=== PATIENT | female | born 1980 | race African-American/Black ===

== ENCOUNTER 2017-06-22 07:34 | Emergency (ER) | payer MEDICAID ==
[~2017-06-22] VITALS: Ht 170.2 cm; Wt 175.0 kg
[~2017-06-22 07:34] MED LIST: ALBU17AE26; BECL8.7A6
[2017-06-22] MEDS ORDERED: ALBUTEROL (0.083%) 2.5MG/3ML NEB HHN STA ×2 (09:38→11:58)
[2017-06-22] MEDS ORDERED: IPRATROPIUM BROMIDE (0.02%) 0.5MG/2.5ML NEB HHN STA ×2 (09:38→11:58)
[2017-06-22] MEDS ORDERED: PREDNISONE 20MG TABLET PO STA (09:38)
[2017-06-22 13:50] VITALS: BP 158/84
== END 2017-06-22 14:15 | disposition home or self-care (01) ==
LOC: ER 07:43
DX: J45.901 Unspecified asthma with (acute) exacerbation (principal); J18.9 Pneumonia, unspecified organism
CPT/HCPCS: 71045; 81025; 94640; 99284; J7512; J7611

== ENCOUNTER 2017-08-03 12:35 | Emergency (ER) | payer MEDICAID ==
[~2017-08-03] VITALS: Ht 170.2 cm; Wt 160.0 kg
[2017-08-03 14:57] LABS: BASOPHILS % 0.6 % (0.0-2.0); EOSINOPHILS % 1.1 % (0.0-5.0); HEMATOCRIT. 28.7 % (36.0-48.0); HEMOGLOBIN. 8.5 g/dL (12.0-16.0); LYMPHOCYTES % 7.2 % (20.0-50.0); MEAN CORPUSCULAR VOLUME 60.4 fL (81.0-99.0); MEAN PLATELET VOLUME 8.4 fl (7.4-10.4); MONOCYTES % 5.5 % (2.0-8.0); NEUTROPHILS % 85.6 % (40.0-76.0); PLATELET 489 x1000/uL (130-400); RED BLOOD CELL COUNT 4.74 mill/uL (4.2-5.4); RED CELL DISTRIBUTION WIDTH 19.8 % (11.6-14.6)
[2017-08-03] MEDS ORDERED: DEXAMETHASONE 10 MG/ML VIAL IV ONE (15:00)
[2017-08-03 15:07] LABS: CHLORIDE 103 mEq/L (98-107)
[2017-08-03 15:40] LABS: PLATELET ESTIMATE INCREASED
[2017-08-03] MEDS ORDERED: CEFTRIAXONE 1 G PREMIX 50 ML IV ONE (15:45)
[2017-08-03 17:35] VITALS: BP 167/95
== END 2017-08-03 18:03 | disposition home or self-care (01) ==
LOC: ER 13:37
DX: J02.0 Streptococcal pharyngitis (principal); D50.9 Iron deficiency anemia, unspecified; D72.829 Elevated white blood cell count, unspecified; J45.909 Unspecified asthma, uncomplicated; Z98.890 Other specified postprocedural states
CPT/HCPCS: 36415; 80053; 85025; 87430; 96365; 96375; 99284; J0696; J1100

== ENCOUNTER 2019-04-21 17:56 | Emergency (ER) | payer MEDICAID, MEDICARE ==
[~2019-04-21] VITALS: Ht 170.2 cm; Wt 172.0 kg
[2019-04-21] MEDS ORDERED: VISCOUS LIDOCAINE 2% 15 ML UDC PO ONE (20:00)
[2019-04-21] MEDS ORDERED: ASPIRIN 81MG TABLET PO ONE (20:00)
[2019-04-21] MEDS ORDERED: MAGNESIUM/ALUMINUM HYDROXIDE/SIMETHICONE 30ML UDC PO ONE (20:00)
[2019-04-21 20:32] LABS: CHLORIDE 105 mEq/L (98-107)
[2019-04-21 20:33] LABS: BASOPHILS % 1.1 % (0.0-2.0); HEMATOCRIT. 24.9 % (36.0-48.0); HEMOGLOBIN. 7.6 g/dL (12.0-16.0); LYMPHOCYTES % 29.1 % (20.0-50.0); MEAN CORPUSCULAR HEMOGLOBIN 17.9 pg (28.0-32.0); MEAN CORPUSCULAR VOLUME 58.6 fL (81.0-99.0); MEAN PLATELET VOLUME 8.5 fl (7.4-10.4); MONOCYTES % 7.2 % (2.0-8.0); NEUTROPHILS % 59.6 % (40.0-76.0); PLATELET 482 x1000/uL (130-400); RED BLOOD CELL COUNT 4.24 mill/uL (4.2-5.4); RED CELL DISTRIBUTION WIDTH 19.6 % (11.6-14.6)
[2019-04-21 20:58] LABS: PLATELET ESTIMATE INCREASED
[2019-04-22 00:32] VITALS: BP 114/64
== END 2019-04-22 00:35 | disposition home or self-care (01) ==
LOC: ER 17:56
DX: R07.89 Other chest pain (principal); D64.9 Anemia, unspecified; J45.909 Unspecified asthma, uncomplicated; Z79.82 Long term (current) use of aspirin
CPT/HCPCS: 36415; 71045; 80053; 83880; 84484; 85025; 93005; 99284; Z7610

== ENCOUNTER 2020-03-10 16:28 | Emergency (ER) | payer MEDICAID, MEDICARE ==
[~2020-03-10] VITALS: Ht 170.2 cm; Wt 135.0 kg
[2020-03-10 19:40] VITALS: BP 134/80
== END 2020-03-10 19:46 | disposition home or self-care (01) ==
LOC: ER 16:28
DX: M25.562 Pain in left knee (principal); J45.909 Unspecified asthma, uncomplicated; Z98.890 Other specified postprocedural states
CPT/HCPCS: 73562; 99283

== ENCOUNTER 2020-04-28 00:33 | Emergency (ER) | payer MEDICAID ==
[~2020-04-28] VITALS: Ht 170.2 cm; Wt 164.0 kg
[2020-04-28] MEDS ORDERED: KETOROLAC 60MG/2ML VIAL IM STA (00:58)
[2020-04-28] MEDS ORDERED: NITROGLYCERIN 0.4MG TABLET SL SL PRN (01:00)
[2020-04-28] MEDS ORDERED: ASPIRIN 81MG TABLET PO ONE (01:00)
[2020-04-28 01:18] LABS: CHLORIDE 105 mEq/L (98-107)
[2020-04-28 01:29] LABS: BASOPHILS % 0.7 % (0.0-2.0); HEMATOCRIT. 25.7 % (36.0-48.0); HEMOGLOBIN. 7.7 g/dL (12.0-16.0); LYMPHOCYTES % 21.2 % (20.0-50.0); MEAN CORPUSCULAR HEMOGLOBIN 16.8 pg (28.0-32.0); MEAN CORPUSCULAR VOLUME 56.2 fL (81.0-99.0); MEAN PLATELET VOLUME 8.5 fl (7.4-10.4); MONOCYTES % 8.9 % (2.0-8.0); NEUTROPHILS % 67.2 % (40.0-76.0); PLATELET 533 x1000/uL (130-400); RED BLOOD CELL COUNT 4.57 mill/uL (4.2-5.4); RED CELL DISTRIBUTION WIDTH 20.5 % (11.6-14.6)
[2020-04-28 01:32] LABS: PLATELET ESTIMATE INCREASED
[2020-04-28 02:20] VITALS: BP 137/85
== END 2020-04-28 05:56 | disposition home or self-care (01) ==
LOC: ER 00:33
DX: R07.89 Other chest pain (principal); E66.9 Obesity, unspecified; J45.909 Unspecified asthma, uncomplicated; Z98.890 Other specified postprocedural states
CPT/HCPCS: 36415; 71045; 80053; 83880; 84484; 85025; 93005; 96372; 99285; J1885; Z7610

== ENCOUNTER 2021-04-02 19:25 | Emergency (ER) | payer MEDICAID, OTHER ==
[~2021-04-02] VITALS: Ht 170.2 cm; Wt 159.0 kg
[2021-04-02 20:06] VITALS: BP 160/70
[2021-04-02] MEDS ORDERED: TETANUS, DIPHTHERIA, PERTUSSIS VAC/PF 0.5ML (>10YR OLD) IM ONE (20:30)
[2021-04-02] MEDS ORDERED: BACITRACIN ZINC OINT UDPKT TOP ONE (20:30)
[2021-04-02] MEDS ORDERED: ACETAMINOPHEN 325MG TABLET PO ONE (20:30)
[2021-04-02] MEDS ORDERED: LIDOCAINE HCL/PF 1% 10 MG/ML 5ML VIAL INFIL ONE (20:30)
[2021-04-02] MEDS ORDERED: SULF1TAB48 MT (20:36)
[2021-04-02] MEDS ORDERED: LIDOCAINE HCL 1% 20ML VIAL (Pyxis) INJ INFIL ONE (21:00)
[2021-04-02] MEDS ORDERED: LIDOCAINE HCL/PF 1% 10 MG/ML 5ML VIAL IJ NR (21:00)
== END 2021-04-02 21:35 | disposition home or self-care (01) ==
LOC: ER 19:25
DX: L05.01 Pilonidal cyst with abscess (principal); J45.909 Unspecified asthma, uncomplicated; Z98.890 Other specified postprocedural states
CPT/HCPCS: 10060; 90471; 90715; 99283; J3490

== ENCOUNTER 2021-04-28 12:59 | Emergency (ER) | payer MEDICAID ==
[~2021-04-28] VITALS: Ht 170.2 cm; Wt 171.0 kg
[~2021-04-28 12:59] MED LIST changes: +SULF1TAB48 MT
[2021-04-28 13:04] VITALS: BP 172/65
[2021-04-29] MEDS ORDERED: ALBUL MT (16:48)
[2021-04-29] MEDS ORDERED: ALBU18HF2 IH (16:48)
[2021-04-29] MEDS ORDERED: P20 PO (16:48)
== END 2021-04-28 18:45 | disposition left against medical advice (07) ==
LOC: ER 13:07
DX: Z53.21 Procedure and treatment not carried out due to patient leaving prior to being seen by health care provider (principal); J45.909 Unspecified asthma, uncomplicated
CPT/HCPCS: 93005

== ENCOUNTER 2021-04-29 13:29 | Emergency (ER) | payer MEDICAID ==
[~2021-04-29] VITALS: Ht 170.2 cm; Wt 178.0 kg
[2021-04-29] MEDS ORDERED: ACETAMINOPHEN 325MG TABLET PO ONE (16:00)
[2021-04-29] MEDS ORDERED: ALBUTEROL (0.083%) 2.5MG/3ML NEB HHN ONE (16:15)
[2021-04-29] MEDS ORDERED: PREDNISONE 20MG TABLET PO ONE (16:15)
[2021-04-29] MEDS ORDERED: P20 PO (16:48)
[2021-04-29] MEDS ORDERED: ALBUL MT (16:48)
[2021-04-29] MEDS ORDERED: ALBU18HF2 IH (16:48)
[2021-04-29 17:16] VITALS: BP 134/83
== END 2021-04-29 17:42 | disposition home or self-care (01) ==
LOC: ER 13:29
DX: J45.901 Unspecified asthma with (acute) exacerbation (principal); Z79.899 Other long term (current) drug therapy
CPT/HCPCS: 81025; 94640; 99283; J7512; Z7610

== ENCOUNTER 2021-09-02 01:33 | Inpatient (IN) | payer MEDICAID, OTHER ==
[~2021-09-02] VITALS: Ht 165.1 cm; Wt 81.8 kg
[~2021-09-02 01:33] MED LIST changes: +ALBU18HF2 IH; +ALBU6.7H9 INH; +ALBUL MT; +P20 PO; +P50 PO
[2021-09-02] MEDS ORDERED: MORPHINE SULFATE 4 MG/ML CPJ (NOT FOR IM USE) IV ONE (02:30)
[2021-09-02 03:06] LABS: EOSINOPHILS % 3.1 % (0.0-5.0); HEMATOCRIT. 24.9 % (36.0-48.0); LYMPHOCYTES % 26.5 % (20.0-50.0); MEAN CORPUSCULAR HEMOGLOBIN 14.2 pg (28.0-32.0); MEAN CORPUSCULAR VOLUME 51.9 fL (81.0-99.0); MEAN PLATELET VOLUME 8.5 fl (7.4-10.4); MONOCYTES % 5.5 % (2.0-8.0); NEUTROPHILS % 63.9 % (40.0-76.0); PLATELET 807 x1000/uL (130-400); RED BLOOD CELL COUNT 4.79 mill/uL (4.2-5.4); RED CELL DISTRIBUTION WIDTH 23.2 % (11.6-14.6)
[2021-09-02 03:10] LABS: CHLORIDE 104 mEq/L (98-107)
[2021-09-02 03:14] LABS: CLARITY URINE CLOUDY (CLEAR); COLOR URINE ORANGE (YELLOW); KETONES URINE TRACE (NEGATIVE); LEUKOCYTE ESTERASE URINE 1+ (NEGATIVE); NITRITE URINE NEGATIVE (NEGATIVE); OCCULT BLOOD URINE 3+ (NEGATIVE); PH URINE 5.5 (4.5-8.0); PROTEIN URINE 1+ (NEGATIVE); SPECIFIC GRAVITY URINE 1.033 (1.005-1.030)
[2021-09-02 03:20] LABS: B-HCG QUANTITATIVE < 1 mIU/mL (<3)
[2021-09-02 03:39] LABS: HEMOGLOBIN. 6.8 g/dL (12.0-16.0)
[2021-09-02] MEDS ORDERED: CEFTRIAXONE 1 G PREMIX 50 ML IV ONE (04:15)
[2021-09-02 06:44] LABS: PLATELET ESTIMATE MARKEDLY INCREASED
[2021-09-02] MEDS ORDERED: MAGNESIUM/ALUMINUM HYDROXIDE/SIMETHICONE 30ML UDC PO ONE (09:45)
[2021-09-02] MEDS ORDERED: ACETAMINOPHEN 325MG TABLET PO ONE (09:45)
[2021-09-02] MEDS ORDERED: ONDANSETRON HCL 4MG/2ML INJ IV PRN (12:30)
[2021-09-02] MEDS ORDERED: ACETAMINOPHEN 325MG TABLET PO PRN (12:30)
[2021-09-02] MEDS ORDERED: KETOROLAC 30MG/ML VIAL IV PRN (12:30)
[2021-09-02 14:16] LABS: HEMATOCRIT 24.6 % (36.0-48.0)
[2021-09-02 14:32] LABS: HEMOGLOBIN 6.9 g/dL (12.0-16.0)
[2021-09-02] MEDS: DOCUSATE SODIUM 250MG CAPSULE PO SCH (16:38)
[2021-09-02] MEDS: FERROUS SULFATE 325MG TABLET PO SCH (16:40)
[2021-09-02 20:00] VITALS: BP 117/68
[2021-09-02] MEDS ORDERED: ALBU18HF2 IH (20:22)
[2021-09-02] MEDS ORDERED: IPRATROPIUM/ALBUTEROL 0.5-3(2.5)MG/3ML NEB HHN PRN (20:45)
[2021-09-03] VITALS: BP 112/50
[2021-09-03] LABS: BASOPHILS % 0.6 % (0.0-2.0); EOSINOPHILS % 3.1 % (0.0-5.0); HEMATOCRIT. 22.5 % (36.0-48.0); LYMPHOCYTES % 34.9 % (20.0-50.0); MEAN CORPUSCULAR HEMOGLOBIN 14.6 pg (28.0-32.0); MEAN PLATELET VOLUME 8.3 fl (7.4-10.4); MONOCYTES % 7.4 % (2.0-8.0); PLATELET 758 x1000/uL (130-400); RED BLOOD CELL COUNT 4.33 mill/uL (4.2-5.4); RED CELL DISTRIBUTION WIDTH 22.7 % (11.6-14.6)
[2021-09-03 00:07] LABS: CHLORIDE 107 mEq/L (98-107)
[2021-09-03 00:13] LABS: HEMOGLOBIN. 6.3 g/dL (12.0-16.0)
[2021-09-03] MEDS ORDERED: *PATIENT'S OWN MEDICATION STORAGE XX SCH (06:45)
[2021-09-03 06:50] LABS: BASOPHILS % 0.2 % (0.0-2.0); EOSINOPHILS % 3.6 % (0.0-5.0); HEMATOCRIT. 22.9 % (36.0-48.0); LYMPHOCYTES % 32.1 % (20.0-50.0); MEAN CORPUSCULAR HEMOGLOBIN 14.5 pg (28.0-32.0); MEAN CORPUSCULAR VOLUME 52.2 fL (81.0-99.0); MEAN PLATELET VOLUME 8.3 fl (7.4-10.4); MONOCYTES % 7.1 % (2.0-8.0); PLATELET 768 x1000/uL (130-400); RED BLOOD CELL COUNT 4.38 mill/uL (4.2-5.4); RED CELL DISTRIBUTION WIDTH 22.4 % (11.6-14.6)
[2021-09-03 07:15] LABS: *AMPHETAMINES SCREEN URINE NEGATIVE (NEGATIVE); *BARBITURATES SCREEN URINE NEGATIVE (NEGATIVE); *BENZODIAZEPINES SCREEN URINE NEGATIVE (NEGATIVE); CANNABINOID URINE SCREEN NEGATIVE (NEGATIVE)
[2021-09-03 07:16] LABS: *COCAINE SCREEN URINE NEGATIVE (NEGATIVE); METHADONE URINE SCREEN NEGATIVE (NEGATIVE); OPIATES URINE SCREEN NEGATIVE (NEGATIVE); PHENCYCLIDINE URINE SCREEN NEGATIVE (NEGATIVE)
[2021-09-03 08:00] VITALS: BP 114/48
[2021-09-03 08:17] LABS: HEMOGLOBIN. 6.3 g/dL (12.0-16.0)
[2021-09-03] MEDS: FERROUS SULFATE 325MG TABLET PO SCH ×2 (09:31→12:22)
[2021-09-03] MEDS: DOCUSATE SODIUM 250MG CAPSULE PO SCH (09:31)
[2021-09-03 12:00] VITALS: BP 115/50
[2021-09-03] MEDS ORDERED: DOCU250C14 PO (13:26)
[2021-09-03] MEDS ORDERED: FERR-63 PO (13:26)
[2021-09-03 15:30] VITALS: BP 115/50
[2021-09-03] MEDS ORDERED: EPOETIN ALFA-EPBX 4,000 UNIT/ML VIAL SUBCUT NR (21:00)
== END 2021-09-03 16:30 | disposition home or self-care (01) | DRG 254 ==
LOC: ER 01:33 → 8WST 11:03 → ENRESERV 19:30
PROVIDERS: ADMIT Internal Medicine; ATTEND Internal Medicine
DX: K43.9 Ventral hernia without obstruction or gangrene (principal); E44.1 Mild protein-calorie malnutrition; K80.70 Calculus of gallbladder and bile duct without cholecystitis without obstruction; E87.1 Hypo-osmolality and hyponatremia; E66.01 Morbid (severe) obesity due to excess calories; D64.9 Anemia, unspecified; J45.909 Unspecified asthma, uncomplicated; Z68.30 Body mass index [BMI] 30.0-30.9, adult; Z79.899 Other long term (current) drug therapy; Z98.891 History of uterine scar from previous surgery; Z71.3 Dietary counseling and surveillance
CPT/HCPCS: 36415; 74176; 76705; 80048; 80053; 80305; 81003; 84484; 84702; 85014; 85018; 85025; 86850; 86900; 86920; 93005; 99285; G0378; J0696; J1885; J2270; J2405

== ENCOUNTER 2022-12-08 19:51 | Emergency (ER) | payer MEDICAID, OTHER ==
[~2022-12-08] VITALS: Ht 170.2 cm; Wt 163.0 kg
[~2022-12-08 19:51] MED LIST changes: -ALBU17AE26; -ALBU6.7H9 INH; -ALBUL MT; -BECL8.7A6; +DOCU250C14 PO; +FERR-63 PO; -P20 PO; -P50 PO; -SULF1TAB48 MT
[2022-12-08 20:08] VITALS: TEMP 99.3; O2SAT 100
[2022-12-08 21:15] VITALS: BP 133/94; PULSE 105; RESP 18
[2022-12-08] MEDS ORDERED: KETOROLAC 60MG/2ML VIAL IM ONE (21:15)
[2022-12-08] MEDS ORDERED: ACETAMINOPHEN 325MG TABLET PO ONE (21:15)
[2022-12-08] MEDS ORDERED: LIDOCAINE 5% PATCH TOP SCH (21:15)
[2022-12-08] MEDS ORDERED: IBUP-2028 MT (22:27)
[2022-12-08] MEDS ORDERED: TOPUD PO (22:27)
[2022-12-08] MEDS ORDERED: LIDO1ADH23 TP (22:27)
== END 2022-12-08 23:34 | disposition home or self-care (01) ==
LOC: ER 19:51
DX: M25.561 Pain in right knee (principal); M17.11 Unilateral primary osteoarthritis, right knee; J45.909 Unspecified asthma, uncomplicated; Z98.890 Other specified postprocedural states
CPT/HCPCS: 99285; 93971; 73562; 96372; J1885

== ENCOUNTER 2023-01-11 16:02 | Emergency (ER) | payer OTHER ==
[~2023-01-11] VITALS: Ht 170.2 cm; Wt 155.0 kg
[~2023-01-11 16:02] MED LIST changes: +IBUP-2028 MT; +LIDO1ADH23 TP; +TOPUD PO
[2023-01-11 16:22] VITALS: O2SAT 100
[2023-01-11] MEDS ORDERED: LOPERAMIDE HCL 2MG CAPSULE PO ONE (17:00)
[2023-01-11 17:57] LABS: BASOPHILS % 0.6 % (0.0-2.0); EOSINOPHILS % 3.1 % (0.0-5.0); HEMATOCRIT. 26.3 % (36.0-48.0); HEMOGLOBIN. 7.1 g/dL (12.0-16.0); MEAN CORPUSCULAR HEMOGLOBIN 13.7 pg (28.0-32.0); MEAN CORPUSCULAR HGB CONC 27.2 g/dL (31.0-37.0); MEAN CORPUSCULAR VOLUME 50.3 fL (81.0-99.0); MEAN PLATELET VOLUME 8.5 fl (7.4-10.4); MONOCYTES % 11.2 % (2.0-8.0); NEUTROPHILS % 60.1 % (40.0-76.0); PLATELET 706 x1000/uL (130-400); RED BLOOD CELL COUNT 5.23 mill/uL (4.2-5.4); RED CELL DISTRIBUTION WIDTH 22.1 % (11.6-14.6); WHITE BLOOD COUNT 7.1 x1000/uL (4.5-11.0)
[2023-01-11 18:02] LABS: ADD RBC MORPHOLOGY YES; DIFFERENTIAL COMMENT 1
[2023-01-11 18:04] LABS: CHLORIDE 109 mEq/L (98-107); INDEX HEMOLYSI 1 (1-3); INDEX ICTERIC 1 (1-4); INDEX LIPEMIC 1 (1-3); POTASSIUM 3.4 mEq/L (3.5-5.1); SODIUM 135 mEq/L (136-145)
[2023-01-11 18:11] LABS: ALANINE AMINOTRANSFERASE 19 IU/L (13-61); ASPARTATE AMINOTRANSFERASE 14 IU/L (15-37); BILIRUBIN TOTAL 0.3 mg/dL (0.1-1.0); CARBON DIOXIDE 21 mEq/L (21-32); CREATININE 0.7 mg/dL (0.6-1.3); GLUCOSE 95 mg/dL (70-105); PROTEIN TOTAL 8.3 g/dL (6.0-8.3); UREA NITROGEN BLOOD 7 mg/dL (7-21)
[2023-01-11 18:13] LABS: HCG SCREEN NEGATIVE
[2023-01-11 18:29] LABS: ANISOCYTOSIS 2+; HYPOCHROMASIA 3+; MICROCYTOSIS 3+; OVALOCYTES 1+; PLATELET ESTIMATE MARKEDLY INCREASED
[2023-01-11] MEDS ORDERED: IMOD MT (18:48)
[2023-01-11 19:27] VITALS: BP 117/78; PULSE 100; RESP 18; TEMP 98.6
== END 2023-01-11 19:29 | disposition home or self-care (01) ==
LOC: ER 16:02
DX: R19.7 Diarrhea, unspecified (principal); D64.9 Anemia, unspecified; J45.909 Unspecified asthma, uncomplicated; Z98.890 Other specified postprocedural states
CPT/HCPCS: 36415; 80053; 81025; 84703; 85025; 99283

== ENCOUNTER 2023-01-17 19:49 | Emergency (ER) | payer OTHER ==
[~2023-01-17] VITALS: Ht 170.2 cm; Wt 147.3 kg
[~2023-01-17 19:49] MED LIST changes: +IMOD MT
[2023-01-17 19:59] VITALS: O2SAT 100
[2023-01-17 20:48] LABS: CHLORIDE 103 mEq/L (98-107); INDEX HEMOLYSI 1 (1-3); INDEX ICTERIC 1 (1-4); INDEX LIPEMIC 1 (1-3); POTASSIUM 3.5 mEq/L (3.5-5.1); SODIUM 134 mEq/L (136-145)
[2023-01-17 20:51] LABS: ADD RBC MORPHOLOGY YES; BASOPHILS % 0.6 % (0.0-2.0); DIFFERENTIAL COMMENT 1; EOSINOPHILS % 2.5 % (0.0-5.0); HEMATOCRIT. 29.6 % (36.0-48.0); HEMOGLOBIN. 7.7 g/dL (12.0-16.0); LYMPHOCYTES % 30.1 % (20.0-50.0); MEAN CORPUSCULAR HEMOGLOBIN 13.4 pg (28.0-32.0); MEAN CORPUSCULAR HGB CONC 26.1 g/dL (31.0-37.0); MEAN CORPUSCULAR VOLUME 51.4 fL (81.0-99.0); MEAN PLATELET VOLUME 8.3 fl (7.4-10.4); MONOCYTES % 10.5 % (2.0-8.0); NEUTROPHILS % 56.3 % (40.0-76.0); PLATELET 778 x1000/uL (130-400); RED BLOOD CELL COUNT 5.76 mill/uL (4.2-5.4); RED CELL DISTRIBUTION WIDTH 21.9 % (11.6-14.6); WHITE BLOOD COUNT 6.9 x1000/uL (4.5-11.0)
[2023-01-17 20:56] LABS: ALANINE AMINOTRANSFERASE 48 IU/L (13-61); ALBUMIN 3.1 g/dL (3.4-5.0); ASPARTATE AMINOTRANSFERASE 42 IU/L (15-37); BILIRUBIN TOTAL 0.3 mg/dL (0.1-1.0); CALCIUM 8.4 mg/dL (8.5-10.1); CARBON DIOXIDE 24 mEq/L (21-32); CREATININE 0.7 mg/dL (0.6-1.3); GLUCOSE 98 mg/dL (70-105); PROTEIN TOTAL 8.5 g/dL (6.0-8.3); UREA NITROGEN BLOOD 12 mg/dL (7-21)
[2023-01-17] MEDS ORDERED: MORPHINE SULFATE 4 MG/ML CPJ (NOT FOR IM USE) IV STA (21:48)
[2023-01-17] MEDS ORDERED: FAMOTIDINE 20MG/2ML VIAL IV STA (21:48)
[2023-01-17] MEDS ORDERED: ONDANSETRON HCL 4MG/2ML INJ IV STA (21:48)
[2023-01-17] MEDS ORDERED: SODIUM CHLORIDE 0.9% 1,000 ML IV ONE (22:00)
[2023-01-17 22:04] LABS: ANISOCYTOSIS 2+; HYPOCHROMASIA 2+; MICROCYTOSIS 3+; OVALOCYTES 1+; PLATELET ESTIMATE MARKEDLY INCREASED; TARGET CELLS 1+
[2023-01-17 22:29] LABS: HCG SCREEN NEGATIVE
[2023-01-17] MEDS ORDERED: MAGNESIUM/ALUMINUM HYDROXIDE/SIMETHICONE 30ML UDC PO ONE (22:30)
[2023-01-17] MEDS ORDERED: FAMOTIDINE 20MG TABLET PO ONE (22:30)
[2023-01-17] MEDS: KETOROLAC 60MG/2ML VIAL IM NR (23:18)
[2023-01-17] MEDS: ONDANSETRON 4MG ODT PO NR (23:19)
[2023-01-18] MEDS ORDERED: DICY20TA2 MT
[2023-01-18] MEDS ORDERED: ONDA4TAB50 MT
[2023-01-18] MEDS ORDERED: PROT40 MT
[2023-01-18 00:11] VITALS: BP 134/88
[2023-01-18] MEDS: KETOROLAC 60MG/2ML VIAL IM NR (00:11)
[2023-01-18] MEDS: ONDANSETRON 4MG ODT PO NR (00:11)
[2023-01-18 00:25] VITALS: PULSE 109; RESP 14; TEMP 97.6
== END 2023-01-18 00:27 | disposition home or self-care (01) ==
LOC: ER 20:21
DX: R10.9 Unspecified abdominal pain (principal); R19.7 Diarrhea, unspecified; J45.909 Unspecified asthma, uncomplicated; Z98.890 Other specified postprocedural states; Z79.899 Other long term (current) drug therapy
CPT/HCPCS: 99284; 74176; 80053; 81025; 84703; 83690; 85025; 36415; 93005; Q0162; J1885; J2405; J7030

== ENCOUNTER 2023-06-14 22:33 | Inpatient (IN) | payer OTHER ==
[~2023-06-14] VITALS: Ht 172.7 cm; Wt 127.0 kg
[~2023-06-14 22:33] MED LIST changes: -ALBU18HF2 IH; +ALBU18HF2 INH; -FERR-63 PO; +FERR325T30 PO; +FLOV44 IH; -IBUP-2028 MT; +IBUP-2029 PO; -IMOD MT; +ONDA4TAB50 MT; +PANT40TA51 PO; +POTA-354 MT; +VALG450T15 MT
[2023-06-14] MEDS ORDERED: KETOROLAC 30MG/ML VIAL IM STA (23:53)
[2023-06-15] MEDS ORDERED: ONDANSETRON HCL 4MG/2ML INJ IV STA ×2 (00:09→03:04)
[2023-06-15] MEDS ORDERED: MORPHINE SULFATE 4 MG/ML CPJ (NOT FOR IM USE) IV STA (00:09)
[2023-06-15 02:28] LABS: ALANINE AMINOTRANSFERASE 10 IU/L (10-49); ALBUMIN 2.6 g/dL (3.2-4.8); ASPARTATE AMINOTRANSFERASE 23 IU/L (<34); BILIRUBIN TOTAL 0.6 mg/dL (0.1-1.0); CALCIUM 8.2 mg/dL (8.7-10.4); CARBON DIOXIDE 17 mEq/L (21-32); CHLORIDE 97 mEq/L (98-107); CREATININE 0.8 mg/dL (0.6-1.0); GLUCOSE 125 mg/dL (70-105); POTASSIUM 3.2 mEq/L (3.5-5.1); PROTEIN TOTAL 8.1 g/dL (6.0-8.3); SODIUM 132 mEq/L (136-145); UREA NITROGEN BLOOD 8 mg/dL (9-23)
[2023-06-15 02:29] LABS: BASOPHILS % 0.8 % (0.0-2.0); EOSINOPHILS % 0.2 % (0.0-5.0); HEMATOCRIT. 38.4 % (36.0-48.0); HEMOGLOBIN. 12.6 g/dL (12.0-16.0); LYMPHOCYTES % 10.5 % (20.0-50.0); MEAN CORPUSCULAR HEMOGLOBIN 26.2 pg (28.0-32.0); MEAN CORPUSCULAR HGB CONC 32.9 g/dL (31.0-37.0); MEAN CORPUSCULAR VOLUME 79.5 fL (81.0-99.0); MEAN PLATELET VOLUME 8.7 fl (7.4-10.4); MONOCYTES % 7.1 % (2.0-8.0); NEUTROPHILS % 81.4 % (40.0-76.0); PLATELET 440 x1000/uL (130-400); RED BLOOD CELL COUNT 4.83 mill/uL (4.2-5.4); RED CELL DISTRIBUTION WIDTH 16.4 % (11.6-14.6); WHITE BLOOD COUNT 7.6 x1000/uL (4.5-11.0)
[2023-06-15 02:30] LABS: DIFFERENTIAL COMMENT 1
[2023-06-15 02:31] LABS: HCG SCREEN NEGATIVE
[2023-06-15 02:44] LABS: TROPONIN I HIGH SENSITIVITY < 4 ng/L (3.0-34)
[2023-06-15] MEDS ORDERED: SODIUM CHLORIDE 0.9% 1,000 ML IV ONE (03:15)
[2023-06-15] MEDS ORDERED: POTASSIUM CHLORIDE 20MEQ TABLET SR PO ONE (03:15)
[2023-06-15] MEDS ORDERED: MORPHINE SULFATE 4 MG/ML CPJ (NOT FOR IM USE) IV NR (10:17)
[2023-06-15] MEDS ORDERED: ONDANSETRON HCL 4MG/2ML INJ IV NR (10:19)
[2023-06-15] MEDS ORDERED: POTASSIUM CHLORIDE 20MEQ TABLET SR PO NR (10:20)
[2023-06-15] MEDS ORDERED: IPRATROPIUM/ALBUTEROL 0.5-3(2.5)MG/3ML NEB HHN PRN (12:30)
[2023-06-15] MEDS ORDERED: GUAIFENESIN 200MG/10ML SUGAR FREE UDC PO PRN (12:30)
[2023-06-15] MEDS ORDERED: ONDANSETRON HCL 4MG/2ML INJ IV PRN (12:30)
[2023-06-15] MEDS ORDERED: CLONIDINE 0.1MG TABLET PO PRN (12:30)
[2023-06-15] MEDS ORDERED: ACETAMINOPHEN 325MG TABLET PO PRN (12:30)
[2023-06-15] MEDS ORDERED: MAGNESIUM/ALUMINUM HYDROXIDE/SIMETHICONE 30ML UDC PO PRN (12:30)
[2023-06-15] MEDS ORDERED: PANTOPRAZOLE SODIUM 40 MG/VIAL IV SCH (13:15)
[2023-06-15 13:21] LABS: CALCIUM 7.7 mg/dL (8.7-10.4); CARBON DIOXIDE 24 mEq/L (21-32); CHLORIDE 99 mEq/L (98-107); CREATININE 0.6 mg/dL (0.6-1.0); GLUCOSE 75 mg/dL (70-105); POTASSIUM 3.2 mEq/L (3.5-5.1); SODIUM 132 mEq/L (136-145); UREA NITROGEN BLOOD 8 mg/dL (9-23)
[2023-06-15 13:26] LABS: CHOLESTEROL 116 mg/dL (<200); HDL CHOLESTEROL 37 mg/dL (>65); LDL CHOLESTEROL 57 mg/dL (5-100); PHOSPHORUS 3.3 mg/dL (2.5-4.9); T4 FREE 1.17 ng/dL (0.89-1.76); TRIGLYCERIDE 85 mg/dL (0-150)
[2023-06-15] MEDS ORDERED: FUROSEMIDE 40MG/4ML VIAL IVP NR (13:30)
[2023-06-15 13:32] LABS: PREALBUMIN < 5.0 mg/dl (10.0-40.0)
[2023-06-15] MEDS ORDERED: POTASSIUM CHLORIDE INJ 40 MEQ in DEXT 5% WATER 500 ML IV NR (14:00)
[2023-06-15] MEDS: ENOXAPARIN 40MG/0.4ML SYR SUBCUT SCH (14:00)
[2023-06-15] MEDS: SUCRALFATE 1G TABLET PO SCH ×3 (14:30→17:00)
[2023-06-15] MEDS ORDERED: DEXT 5%/0.9% NACL 1,000 ML IV ONE (16:15)
[2023-06-16] MEDS: KETOROLAC 30MG/ML VIAL IV PRN ×2 (00:40→13:01)
[2023-06-16] MEDS: ONDANSETRON HCL 4MG/2ML INJ IV PRN ×2 (00:40→13:00)
[2023-06-16] MEDS: ACETAMINOPHEN 325MG TABLET PO PRN (00:41)
[2023-06-16] MEDS: SUCRALFATE 1G TABLET PO SCH ×7 (00:42→21:00)
[2023-06-16 01:09] LABS: CREATINE KINASE < 15 IU/L (34-145); TROPONIN I HIGH SENSITIVITY < 4 ng/L (3.0-34)
[2023-06-16 07:50] LABS: BASOPHILS % 0.9 % (0.0-2.0); DIFFERENTIAL COMMENT 0; EOSINOPHILS % 2.3 % (0.0-5.0); HEMATOCRIT. 33.1 % (36.0-48.0); HEMOGLOBIN. 10.7 g/dL (12.0-16.0); LYMPHOCYTES % 37.7 % (20.0-50.0); MEAN CORPUSCULAR HEMOGLOBIN 25.8 pg (28.0-32.0); MEAN CORPUSCULAR HGB CONC 32.3 g/dL (31.0-37.0); MEAN CORPUSCULAR VOLUME 79.9 fL (81.0-99.0); MEAN PLATELET VOLUME 7.8 fl (7.4-10.4); MONOCYTES % 14.3 % (2.0-8.0); NEUTROPHILS % 44.8 % (40.0-76.0); PLATELET 409 x1000/uL (130-400); RED BLOOD CELL COUNT 4.14 mill/uL (4.2-5.4); RED CELL DISTRIBUTION WIDTH 16.1 % (11.6-14.6); WHITE BLOOD COUNT 4.1 x1000/uL (4.5-11.0)
[2023-06-16 08:00] LABS: CALCIUM 7.5 mg/dL (8.7-10.4); CARBON DIOXIDE 25 mEq/L (21-32); CHLORIDE 100 mEq/L (98-107); CREATININE 0.7 mg/dL (0.6-1.0); GLUCOSE 84 mg/dL (70-105); PHOSPHORUS 2.7 mg/dL (2.5-4.9); POTASSIUM 3.6 mEq/L (3.5-5.1); SODIUM 132 mEq/L (136-145); UREA NITROGEN BLOOD 11 mg/dL (9-23)
[2023-06-16] MEDS ORDERED: MAGNESIUM 2 G PREMIX 50 ML IV NR (08:15)
[2023-06-16] MEDS: PANTOPRAZOLE SODIUM 40 MG/VIAL IV SCH (08:52)
[2023-06-16] MEDS ORDERED: PROMETHAZINE HCL 25MG SUPP PR PRN (11:15)
[2023-06-16 12:00] VITALS: BP 112/71; PULSE 75; RESP 19; TEMP 97.7
[2023-06-16] MEDS: SODIUM CHLORIDE 0.9% 1,000 ML IV SCH (12:59)
[2023-06-16 16:00] VITALS: BP 108/60; PULSE 90; RESP 20; TEMP 98.6
[2023-06-16] MEDS: ENOXAPARIN 40MG/0.4ML SYR SUBCUT SCH (16:50)
[2023-06-16 20:00] VITALS: BP 108/72; PULSE 94; RESP 18; TEMP 96.4
[2023-06-17] VITALS: BP 112/78; PULSE 90; RESP 18; TEMP 97.6
[2023-06-17] MEDS ORDERED: NITROGLYCERIN 0.4MG TABLET SL SL PRN (02:30)
[2023-06-17] MEDS: SODIUM CHLORIDE 0.9% 1,000 ML IV SCH ×2 (03:55→20:35)
[2023-06-17 04:00] VITALS: BP 113/67; PULSE 84; RESP 18; TEMP 96.7
[2023-06-17] MEDS: SUCRALFATE 1G TABLET PO SCH (06:39)
[2023-06-17 08:00] VITALS: BP 124/74; PULSE 84; RESP 18; TEMP 97.5
[2023-06-17] MEDS ORDERED: LIDOCAINE HCL 1% 10 MG/ML 10ML VIAL ONE (08:35)
[2023-06-17] MEDS: PANTOPRAZOLE SODIUM 40 MG/VIAL IV SCH (09:43)
[2023-06-17] MEDS: ONDANSETRON HCL 4MG/2ML INJ IV PRN ×2 (09:44→21:05)
[2023-06-17] MEDS: KETOROLAC 30MG/ML VIAL IV PRN ×2 (09:44→21:05)
[2023-06-17] MEDS ORDERED: FUROSEMIDE 40MG/4ML VIAL IVP NR (10:15)
[2023-06-17 12:00] VITALS: BP 127/74; PULSE 84; RESP 18; TEMP 97.5
[2023-06-17] MEDS: ENOXAPARIN 40MG/0.4ML SYR SUBCUT SCH (13:17)
[2023-06-17 16:00] VITALS: BP 124/82; PULSE 87; RESP 18; TEMP 97.5
[2023-06-17 18:27] LABS: BASOPHILS % 0.8 % (0.0-2.0); EOSINOPHILS % 1.8 % (0.0-5.0); HEMOGLOBIN. 9.5 g/dL (12.0-16.0); MEAN CORPUSCULAR HEMOGLOBIN 25.5 pg (28.0-32.0); MEAN CORPUSCULAR HGB CONC 31.7 g/dL (31.0-37.0); MEAN CORPUSCULAR VOLUME 80.2 fL (81.0-99.0); MEAN PLATELET VOLUME 7.6 fl (7.4-10.4); NEUTROPHILS % 52.4 % (40.0-76.0); PLATELET 368 x1000/uL (130-400); RED BLOOD CELL COUNT 3.73 mill/uL (4.2-5.4); WHITE BLOOD COUNT 3.9 x1000/uL (4.5-11.0)
[2023-06-17 18:54] LABS: CALCIUM 6.6 mg/dL (8.7-10.4); CARBON DIOXIDE 21 mEq/L (21-32); CHLORIDE 105 mEq/L (98-107); CREATININE 0.5 mg/dL (0.6-1.0); GLUCOSE 60 mg/dL (70-105); PHOSPHORUS 2.1 mg/dL (2.5-4.9); SODIUM 136 mEq/L (136-145); UREA NITROGEN BLOOD 9 mg/dL (9-23)
[2023-06-17 19:11] LABS: POTASSIUM 2.6 mEq/L (3.5-5.1)
[2023-06-17] MEDS ORDERED: POTASSIUM CHLORIDE INJ 40 MEQ in DEXT 5% WATER 500 ML IV ONE (19:45)
[2023-06-17 20:00] VITALS: BP 110/73; PULSE 83; RESP 19; TEMP 97.7
[2023-06-17] MEDS: KCL 20MEQ/100ML X 2 FOR TOTAL KCL 40MEQ/200ML IV SCH ×2 (21:00→23:00)
[2023-06-18] VITALS: BP 118/78; PULSE 89; RESP 19; TEMP 97.8
[2023-06-18] MEDS: KCL 20MEQ/100ML X 2 FOR TOTAL KCL 40MEQ/200ML IV SCH ×2 (01:00→03:00)
[2023-06-18 04:00] VITALS: BP 122/82; PULSE 78; RESP 19; TEMP 97.6
[2023-06-18 06:48] LABS: HEMOGLOBIN. 9.7 g/dL (12.0-16.0); MEAN CORPUSCULAR HEMOGLOBIN 25.9 pg (28.0-32.0); MEAN CORPUSCULAR HGB CONC 32.2 g/dL (31.0-37.0); MEAN CORPUSCULAR VOLUME 80.4 fL (81.0-99.0); MEAN PLATELET VOLUME 7.9 fl (7.4-10.4); PLATELET 372 x1000/uL (130-400); RED BLOOD CELL COUNT 3.74 mill/uL (4.2-5.4); WHITE BLOOD COUNT 4.2 x1000/uL (4.5-11.0)
[2023-06-18 06:59] LABS: DIFFERENTIAL COMMENT 1
[2023-06-18 07:14] LABS: CALCIUM 7.3 mg/dL (8.7-10.4); CARBON DIOXIDE 24 mEq/L (21-32); CHLORIDE 101 mEq/L (98-107); CREATININE 0.6 mg/dL (0.6-1.0); GLUCOSE 64 mg/dL (70-105); PHOSPHORUS 2.3 mg/dL (2.5-4.9); SODIUM 131 mEq/L (136-145); UREA NITROGEN BLOOD 10 mg/dL (9-23)
[2023-06-18 08:00] VITALS: BP 129/74; PULSE 69; RESP 20; TEMP 97.4
[2023-06-18] MEDS: PANTOPRAZOLE SODIUM 40 MG/VIAL IV SCH (08:50)
[2023-06-18] MEDS ORDERED: KETOROLAC 30MG/ML VIAL IV PRN (11:45)
[2023-06-18 12:00] VITALS: BP 118/65; PULSE 83; RESP 20; TEMP 94.4
[2023-06-18] MEDS: KETOROLAC 30MG/ML VIAL IV PRN (12:06)
[2023-06-18] MEDS ORDERED: METO-293 MT (15:12)
[2023-06-18] MEDS ORDERED: ONDA8TAB13 MT ×2 (15:12)
[2023-06-18] MEDS: ONDANSETRON HCL 4MG/2ML INJ IV PRN ×2 (15:15→22:51)
[2023-06-18 16:00] VITALS: BP 127/74; PULSE 80; RESP 21; TEMP 97.4
[2023-06-18 17:00] LABS: ATYPICAL LYMPHOCYTES 3; GIANT PLATELETS 1+; HYPOCHROMASIA 1+; PLATELET ESTIMATE SLIGHTLY INCREASED; ROULEAUX 2+; SMUDGE CELLS 2+
[2023-06-18] MEDS ORDERED: MAGNESIUM 4 G PREMIX 100 ML IV NR (17:00)
[2023-06-18] MEDS ORDERED: SODIUM PHOS,M-BASIC-D-BASIC 20 MM in DEXT 5% WATER 243.3333 ML IV NR (17:00)
[2023-06-18] MEDS: DEXT 5%/0.9% NACL 1,000 ML IV SCH (18:42)
[2023-06-18 20:00] VITALS: BP 109/63; PULSE 79; RESP 19; TEMP 97.7
[2023-06-19] VITALS: BP 119/68; PULSE 82; RESP 19; TEMP 97.8
[2023-06-19 04:00] VITALS: BP 110/74; PULSE 88; RESP 19; TEMP 97.7
[2023-06-19] MEDS: DEXT 5%/0.9% NACL 1,000 ML IV SCH ×2 (05:41→21:11)
[2023-06-19] MEDS ORDERED: SIMETHICONE 40 MG/0.6 ML 15ML ONE (07:28)
[2023-06-19 08:00] VITALS: BP 101/61; PULSE 80; RESP 20; TEMP 97.1
[2023-06-19] MEDS: PANTOPRAZOLE SODIUM 40 MG/VIAL IV SCH (09:03)
[2023-06-19 09:10] LABS: FOLATE HEMATOCRIT 29.9 % (34.0-46.6)
[2023-06-19 10:50] LABS: BASOPHILS % 0.5 % (0.0-2.0); DIFFERENTIAL COMMENT 0; EOSINOPHILS % 3.1 % (0.0-5.0); HEMATOCRIT. 31.5 % (36.0-48.0); HEMOGLOBIN. 10.4 g/dL (12.0-16.0); LYMPHOCYTES % 25.6 % (20.0-50.0); MEAN CORPUSCULAR HEMOGLOBIN 25.9 pg (28.0-32.0); MEAN CORPUSCULAR VOLUME 78.5 fL (81.0-99.0); MEAN PLATELET VOLUME 7.5 fl (7.4-10.4); MONOCYTES % 13.6 % (2.0-8.0); NEUTROPHILS % 57.2 % (40.0-76.0); PLATELET 378 x1000/uL (130-400); RED BLOOD CELL COUNT 4.01 mill/uL (4.2-5.4); RED CELL DISTRIBUTION WIDTH 16.3 % (11.6-14.6); WHITE BLOOD COUNT 3.5 x1000/uL (4.5-11.0)
[2023-06-19 11:01] LABS: INR 1.3; PROTHROMBIN TIME 13.5 sec (9.6-11.0)
[2023-06-19 12:00] VITALS: BP 103/58; PULSE 78; RESP 20; TEMP 97.7
[2023-06-19 12:27] LABS: CALCIUM 7.6 mg/dL (8.7-10.4); CARBON DIOXIDE 24 mEq/L (21-32); CHLORIDE 104 mEq/L (98-107); CREATININE 0.6 mg/dL (0.6-1.0); GLUCOSE 82 mg/dL (70-105); PHOSPHORUS 2.8 mg/dL (2.5-4.9); POTASSIUM 3.5 mEq/L (3.5-5.1); SODIUM 133 mEq/L (136-145); UREA NITROGEN BLOOD 6 mg/dL (9-23)
[2023-06-19] MEDS ORDERED: LIDOCAINE HCL 1% 10 MG/ML 10ML VIAL ONE (13:32)
[2023-06-19] MEDS ORDERED: PROPOFOL 200MG/20ML VIAL IV ONE (13:32)
[2023-06-19] MEDS ORDERED: ONDANSETRON HCL 4MG/2ML INJ IV PRN ×2 (14:15→15:00)
[2023-06-19] MEDS ORDERED: HYDROMORPHONE HCL/PF 2MG/ML CPJ IV PRN ×2 (14:15)
[2023-06-19] MEDS ORDERED: MEPERIDINE HCL/PF 25MG/ML CPJ IV PRN ×2 (14:15→15:00)
[2023-06-19] MEDS ORDERED: NALOXONE HCL 0.4MG/ML VIAL IV PRN (14:15)
[2023-06-19] MEDS ORDERED: LABETALOL 5MG/ML SYR 20 MG/4 ML SYRINGE IV PRN ×2 (14:15→15:00)
[2023-06-19 16:00] VITALS: BP 125/78; PULSE 79; RESP 19; TEMP 97.9
[2023-06-19] MEDS: ONDANSETRON HCL 4MG/2ML INJ IV PRN (18:31)
[2023-06-19 20:00] VITALS: BP 122/73; PULSE 87; RESP 18; TEMP 97.8
[2023-06-19 20:38] LABS: *AMPHETAMINES SCREEN URINE NEGATIVE (NEGATIVE); *BARBITURATES SCREEN URINE NEGATIVE (NEGATIVE); *BENZODIAZEPINES SCREEN URINE NEGATIVE (NEGATIVE); *COCAINE SCREEN URINE NEGATIVE (NEGATIVE); ECSTASY MDMA SCREEN URINE NEGATIVE (NEGATIVE); METHADONE URINE SCREEN Neg (NEGATIVE); OPIATES URINE SCREEN NEGATIVE (NEGATIVE); PHENCYCLIDINE URINE SCREEN NEGATIVE (NEGATIVE)
[2023-06-20] VITALS: BP 117/77; PULSE 84; RESP 18; TEMP 97.4
[2023-06-20] MEDS: HYDROXYZINE 25MG TABLET PO PRN ×2 (01:12→22:46)
[2023-06-20 04:00] VITALS: BP 105/63; PULSE 74; RESP 18; TEMP 97.1
[2023-06-20 07:41] LABS: BASOPHILS % 0.6 % (0.0-2.0); DIFFERENTIAL COMMENT 0; EOSINOPHILS % 2.1 % (0.0-5.0); HEMATOCRIT. 28.7 % (36.0-48.0); HEMOGLOBIN. 9.6 g/dL (12.0-16.0); LYMPHOCYTES % 32.5 % (20.0-50.0); MEAN CORPUSCULAR HEMOGLOBIN 26.6 pg (28.0-32.0); MEAN CORPUSCULAR HGB CONC 33.3 g/dL (31.0-37.0); MEAN CORPUSCULAR VOLUME 79.8 fL (81.0-99.0); MEAN PLATELET VOLUME 8.2 fl (7.4-10.4); MONOCYTES % 13.7 % (2.0-8.0); NEUTROPHILS % 51.1 % (40.0-76.0); PLATELET 343 x1000/uL (130-400); RED BLOOD CELL COUNT 3.59 mill/uL (4.2-5.4); RED CELL DISTRIBUTION WIDTH 16.2 % (11.6-14.6); WHITE BLOOD COUNT 4.2 x1000/uL (4.5-11.0)
[2023-06-20 08:00] VITALS: BP_SYST 155; BP_SYST 98; BP_DIAS 66; BP_DIAS 81; PULSE 108; PULSE 83; RESP 18; RESP 20; TEMP 96.3; TEMP 96.7
[2023-06-20] MEDS: DEXT 5%/0.9% NACL 1,000 ML IV SCH ×2 (08:00→22:46)
[2023-06-20 08:01] LABS: CALCIUM 7.6 mg/dL (8.7-10.4); CARBON DIOXIDE 23 mEq/L (21-32); CHLORIDE 107 mEq/L (98-107); CREATININE 0.5 mg/dL (0.6-1.0); GLUCOSE 73 mg/dL (70-105); PHOSPHORUS 2.5 mg/dL (2.5-4.9); POTASSIUM 3.8 mEq/L (3.5-5.1); SODIUM 135 mEq/L (136-145); UREA NITROGEN BLOOD 5 mg/dL (9-23)
[2023-06-20] MEDS: PANTOPRAZOLE SODIUM 40 MG/VIAL IV SCH (09:18)
[2023-06-20 12:00] VITALS: BP 110/75; PULSE 74; RESP 20; TEMP 95.6
[2023-06-20 14:08] LABS: FOLATE RBC 769 ng/mL (>498)
[2023-06-20] MEDS: ENOXAPARIN 40MG/0.4ML SYR SUBCUT SCH (14:08)
[2023-06-20 16:00] VITALS: BP 117/70; PULSE 90; RESP 19; TEMP 98.9
[2023-06-20 20:00] VITALS: BP 115/73; PULSE 76; RESP 20; TEMP 97.7
[2023-06-20] MEDS: ACETAMINOPHEN 325MG TABLET PO PRN (22:47)
[2023-06-21] VITALS: BP 121/70; PULSE 78; RESP 18; TEMP 97.6
[2023-06-21 04:00] VITALS: BP 115/71; PULSE 86; RESP 20; TEMP 97.5
[2023-06-21 08:26] LABS: CALCIUM 7.5 mg/dL (8.7-10.4); CARBON DIOXIDE 22 mEq/L (21-32); CHLORIDE 109 mEq/L (98-107); CREATININE 0.5 mg/dL (0.6-1.0); GLUCOSE 70 mg/dL (70-105); POTASSIUM 3.4 mEq/L (3.5-5.1); SODIUM 137 mEq/L (136-145); UREA NITROGEN BLOOD 8 mg/dL (9-23)
[2023-06-21 08:29] LABS: DIFFERENTIAL COMMENT 0; EOSINOPHILS % 2.9 % (0.0-5.0); HEMATOCRIT. 28.5 % (36.0-48.0); HEMOGLOBIN. 9.5 g/dL (12.0-16.0); LYMPHOCYTES % 39.3 % (20.0-50.0); MEAN CORPUSCULAR HEMOGLOBIN 26.5 pg (28.0-32.0); MEAN CORPUSCULAR HGB CONC 33.4 g/dL (31.0-37.0); MEAN CORPUSCULAR VOLUME 79.4 fL (81.0-99.0); MEAN PLATELET VOLUME 7.9 fl (7.4-10.4); MONOCYTES % 14.5 % (2.0-8.0); NEUTROPHILS % 42.3 % (40.0-76.0); PLATELET 337 x1000/uL (130-400); RED BLOOD CELL COUNT 3.58 mill/uL (4.2-5.4); RED CELL DISTRIBUTION WIDTH 16.4 % (11.6-14.6); WHITE BLOOD COUNT 3.9 x1000/uL (4.5-11.0)
[2023-06-21] MEDS ORDERED: POTASSIUM CHLORIDE 20MEQ TABLET SR PO NR (08:45)
[2023-06-21] MEDS: PANTOPRAZOLE SODIUM 40 MG/VIAL IV SCH (10:40)
[2023-06-21] MEDS: ACETAMINOPHEN 325MG TABLET PO PRN (10:41)
[2023-06-21 12:00] VITALS: BP 115/68; PULSE 79; RESP 18; TEMP 97.6
[2023-06-21] MEDS: ENOXAPARIN 40MG/0.4ML SYR SUBCUT SCH (13:49)
[2023-06-21] MEDS: DEXT 5%/0.9% NACL 1,000 ML IV SCH ×2 (13:52→23:12)
[2023-06-21 16:00] VITALS: BP 111/69; PULSE 80; RESP 18; TEMP 97.8
[2023-06-21 20:00] VITALS: BP 113/65; PULSE 80; RESP 19; TEMP 97.7
[2023-06-22] VITALS: BP 119/72; PULSE 89; RESP 19; TEMP 97.7
[2023-06-22 04:00] VITALS: BP 121/77; PULSE 90; RESP 19; TEMP 98.7
[2023-06-22] MEDS ORDERED: PROPOFOL 200MG/20ML VIAL IV ONE (07:51)
[2023-06-22] MEDS ORDERED: ROCURONIUM BROMIDE 10MG/ML VIAL 5ML IV ONE (07:51)
[2023-06-22] MEDS ORDERED: NEOSTIGMINE METHYLSULFATE 1MG/ML 10 ML VIAL ONE (07:51)
[2023-06-22] MEDS ORDERED: ONDANSETRON HCL 4MG/2ML INJ ONE (07:51)
[2023-06-22] MEDS ORDERED: GLYCOPYRROLATE 0.2 MG/ML 2ML VIAL ONE ×2 (07:51→07:52)
[2023-06-22] MEDS ORDERED: LIDOCAINE HCL 1% 10 MG/ML 10ML VIAL ONE (07:51)
[2023-06-22] MEDS ORDERED: DEXAMETHASONE 4MG/ML 1ML VIAL ONE (07:51)
[2023-06-22] MEDS ORDERED: MIDAZOLAM HCL 2 MG/2 ML VIAL ONE (07:52)
[2023-06-22] MEDS ORDERED: FENTANYL CITRATE/PF 50MCG/ML 2ML VIAL ONE (07:52)
[2023-06-22] MEDS ORDERED: CEFAZOLIN SODIUM 1000MG/VIAL ONE (07:54)
[2023-06-22] MEDS ORDERED: SUCCINYLCHOLINE CHLORIDE 200MG/10ML IV ONE (07:54)
[2023-06-22 08:00] VITALS: BP 142/74; PULSE 88; RESP 18; TEMP 98.2
[2023-06-22 08:17] LABS: BASOPHILS % 0.7 % (0.0-2.0); DIFFERENTIAL COMMENT 0; EOSINOPHILS % 1.8 % (0.0-5.0); HEMOGLOBIN. 9.3 g/dL (12.0-16.0); MEAN CORPUSCULAR HEMOGLOBIN 26.1 pg (28.0-32.0); MEAN CORPUSCULAR VOLUME 78.8 fL (81.0-99.0); MEAN PLATELET VOLUME 7.7 fl (7.4-10.4); MONOCYTES % 13.4 % (2.0-8.0); NEUTROPHILS % 60.1 % (40.0-76.0); PLATELET 334 x1000/uL (130-400); RED BLOOD CELL COUNT 3.56 mill/uL (4.2-5.4); RED CELL DISTRIBUTION WIDTH 16.2 % (11.6-14.6); WHITE BLOOD COUNT 5.4 x1000/uL (4.5-11.0)
[2023-06-22] MEDS ORDERED: BUPIVACAINE HCL/PF 0.5% (5MG/ML) 10ML ONE (08:23)
[2023-06-22] MEDS ORDERED: LIDOCAINE HCL 1% 20ML VIAL (Pyxis) INJ ONE (08:23)
[2023-06-22] MEDS ORDERED: HYDROMORPHONE HCL/PF 2MG/ML CPJ ONE (08:32)
[2023-06-22] MEDS: PANTOPRAZOLE SODIUM 40 MG/VIAL IV SCH (09:00)
[2023-06-22 09:03] LABS: CALCIUM 7.4 mg/dL (8.7-10.4); CARBON DIOXIDE 22 mEq/L (21-32); CHLORIDE 106 mEq/L (98-107); CREATININE 0.4 mg/dL (0.6-1.0); GLUCOSE 67 mg/dL (70-105); PHOSPHORUS 2.3 mg/dL (2.5-4.9); POTASSIUM 3.3 mEq/L (3.5-5.1); SODIUM 137 mEq/L (136-145); UREA NITROGEN BLOOD 8 mg/dL (9-23)
[2023-06-22] MEDS ORDERED: SKIN ADHESIVE 0.7 GM EA TOP ONE (09:15)
[2023-06-22] MEDS ORDERED: MEPERIDINE HCL/PF 25MG/ML CPJ IV PRN (09:45)
[2023-06-22] MEDS ORDERED: HYDROMORPHONE HCL/PF 2MG/ML CPJ IV PRN (09:45)
[2023-06-22] MEDS ORDERED: LABETALOL 5MG/ML SYR 20 MG/4 ML SYRINGE IV PRN (09:45)
[2023-06-22] MEDS ORDERED: ONDANSETRON HCL 4MG/2ML INJ IV PRN (09:45)
[2023-06-22] MEDS ORDERED: POTASSIUM CHLORIDE 20MEQ TABLET SR PO NR (10:00)
[2023-06-22 12:00] VITALS: BP 121/73; PULSE 61; RESP 18; TEMP 98.4
[2023-06-22] MEDS: DEXT 5%/0.9% NACL 1,000 ML IV SCH (14:37)
[2023-06-22] MEDS: ENOXAPARIN 40MG/0.4ML SYR SUBCUT SCH (15:02)
[2023-06-22 16:00] VITALS: BP 123/87; PULSE 70; RESP 18; TEMP 96.5
[2023-06-22 20:00] VITALS: BP 108/69; PULSE 74; RESP 19; TEMP 97.5
[2023-06-23] VITALS: BP 118/72; PULSE 84; RESP 19; TEMP 97.7
[2023-06-23] MEDS: DEXT 5%/0.9% NACL 1,000 ML IV SCH ×2 (02:41→18:13)
[2023-06-23 04:00] VITALS: BP 114/68; PULSE 91; RESP 18; TEMP 97.5
[2023-06-23] MEDS: ONDANSETRON HCL 4MG/2ML INJ IV PRN ×3 (04:01→22:40)
[2023-06-23] MEDS: PANTOPRAZOLE SODIUM 40 MG/VIAL IV SCH (09:57)
[2023-06-23 12:00] VITALS: BP 127/88; PULSE 117; RESP 19; TEMP 97.3
[2023-06-23 16:00] VITALS: BP 117/75; PULSE 79; RESP 19; TEMP 98.8
[2023-06-23] MEDS: ENOXAPARIN 40MG/0.4ML SYR SUBCUT SCH (18:14)
[2023-06-23 20:00] VITALS: BP 110/70; PULSE 83; RESP 20; TEMP 97.7
[2023-06-24] VITALS: BP 117/81; PULSE 86; RESP 20; TEMP 98.4
[2023-06-24] MEDS: METOCLOPRAMIDE HCL 10MG/2ML VIAL IV SCH ×3 (00:20→12:00)
[2023-06-24 04:00] VITALS: BP 112/72; PULSE 92; RESP 20; TEMP 98.1
[2023-06-24] MEDS: DEXT 5%/0.9% NACL 1,000 ML IV SCH (07:09)
[2023-06-24 08:00] VITALS: BP 110/57; PULSE 85; RESP 18; TEMP 97.7
[2023-06-24 08:07] LABS: HEMATOCRIT 26.5 % (36.0-48.0); HEMOGLOBIN 8.6 g/dL (12.0-16.0); MEAN CORPUSCULAR HEMOGLOBIN 25.7 pg (28.0-32.0); MEAN CORPUSCULAR HGB CONC 32.3 g/dL (31.0-37.0); MEAN CORPUSCULAR VOLUME 79.4 fL (81.0-99.0); PLATELET 315 x1000/uL (130-400); RED BLOOD CELL COUNT 3.33 mill/uL (4.2-5.4); RED CELL DISTRIBUTION WIDTH 16.7 % (11.6-14.6); WHITE BLOOD COUNT 5.6 x1000/uL (4.5-11.0)
[2023-06-24 08:42] LABS: CARBON DIOXIDE 23 mEq/L (21-32); CHLORIDE 109 mEq/L (98-107); CREATININE 0.5 mg/dL (0.6-1.0); GLUCOSE 269 mg/dL (70-105); POTASSIUM 2.9 mEq/L (3.5-5.1); SODIUM 139 mEq/L (136-145); UREA NITROGEN BLOOD 6 mg/dL (9-23)
[2023-06-24] MEDS: FLUOXETINE HCL 10 MG CAPSULE PO SCH ×2 (09:00→09:51)
[2023-06-24] MEDS: PANTOPRAZOLE SODIUM 40 MG/VIAL IV SCH (09:51)
[2023-06-24] MEDS: ENOXAPARIN 40MG/0.4ML SYR SUBCUT SCH (09:52)
[2023-06-24 12:00] VITALS: BP 118/67; PULSE 86; RESP 18; TEMP 97.9
[2023-06-24] MEDS ORDERED: MAGNESIUM 1 G PREMIX 100 ML IV NR (15:00)
[2023-06-24] MEDS ORDERED: POTASSIUM PHOS,M-BASIC-D-BASIC 30 MMOL in SODIUM CHLORIDE 0.9% 500 ML IV NR (15:00)
[2023-06-24 16:00] VITALS: BP 108/66; PULSE 83; RESP 18; TEMP 97.7
[2023-06-24 18:21] LABS: ALANINE AMINOTRANSFERASE < 7 IU/L (10-49); ALBUMIN 1.8 g/dL (3.2-4.8); ASPARTATE AMINOTRANSFERASE 10 IU/L (<34); BILIRUBIN DIRECT 0.2 mg/dL (<=3.0); BILIRUBIN TOTAL 0.3 mg/dL (0.1-1.0); PROTEIN TOTAL 6.3 g/dL (6.0-8.3)
[2023-06-24 20:00] VITALS: BP 112/70; PULSE 79; RESP 20; TEMP 97.5
[2023-06-24] MEDS ORDERED: KCL 20MEQ/100ML PREMIX 100 ML IV NR (20:00)
[2023-06-25] VITALS: BP 111/72; PULSE 89; RESP 20; TEMP 98.1
[2023-06-25] MEDS: DEXT 5%/0.9% NACL 1,000 ML IV SCH ×4 (00:13→23:57)
[2023-06-25] MEDS: METOCLOPRAMIDE HCL 10MG/2ML VIAL IV SCH ×5 (00:14→23:57)
[2023-06-25] MEDS: ENOXAPARIN 40MG/0.4ML SYR SUBCUT SCH ×3 (00:22→21:14)
[2023-06-25 04:00] VITALS: BP 131/84; PULSE 86; RESP 20; TEMP 97.7
[2023-06-25 07:56] LABS: BASOPHILS % 0.4 % (0.0-2.0); DIFFERENTIAL COMMENT 0; EOSINOPHILS % 0.4 % (0.0-5.0); HEMATOCRIT. 25.6 % (36.0-48.0); HEMOGLOBIN. 8.2 g/dL (12.0-16.0); MEAN CORPUSCULAR HEMOGLOBIN 25.7 pg (28.0-32.0); MEAN CORPUSCULAR HGB CONC 32.2 g/dL (31.0-37.0); MEAN CORPUSCULAR VOLUME 79.9 fL (81.0-99.0); MEAN PLATELET VOLUME 7.6 fl (7.4-10.4); MONOCYTES % 10.7 % (2.0-8.0); NEUTROPHILS % 66.5 % (40.0-76.0); PLATELET 341 x1000/uL (130-400); RED CELL DISTRIBUTION WIDTH 16.2 % (11.6-14.6); WHITE BLOOD COUNT 5.3 x1000/uL (4.5-11.0)
[2023-06-25 08:00] VITALS: BP 110/76; PULSE 87; RESP 20; TEMP 94.8
[2023-06-25 08:12] LABS: ALANINE AMINOTRANSFERASE < 7 IU/L (10-49); ALBUMIN 1.7 g/dL (3.2-4.8); ASPARTATE AMINOTRANSFERASE 9 IU/L (<34); BILIRUBIN DIRECT 0.2 mg/dL (<=3.0); BILIRUBIN TOTAL 0.3 mg/dL (0.1-1.0); CALCIUM 7.3 mg/dL (8.7-10.4); CARBON DIOXIDE 20 mEq/L (21-32); CHLORIDE 109 mEq/L (98-107); CREATININE 0.4 mg/dL (0.6-1.0); GLUCOSE 69 mg/dL (70-105); POTASSIUM 3.5 mEq/L (3.5-5.1); PROTEIN TOTAL 6.1 g/dL (6.0-8.3); SODIUM 136 mEq/L (136-145); UREA NITROGEN BLOOD 7 mg/dL (9-23)
[2023-06-25] MEDS: PANTOPRAZOLE SODIUM 40 MG/VIAL IV SCH (10:41)
[2023-06-25] MEDS: FLUOXETINE HCL 10 MG CAPSULE PO SCH (10:41)
[2023-06-25] MEDS ORDERED: LEVOFLOXACIN 500MG PREMIX 100 ML IV SCH (11:00)
[2023-06-25 12:00] VITALS: BP 117/63; PULSE 87; RESP 20; TEMP 96.4
[2023-06-25] MEDS: METRONIDAZOLE 500 MG PREMIX 100 ML IV SCH ×2 (12:40→21:16)
[2023-06-25] MEDS ORDERED: MAGNESIUM 1 G PREMIX 100 ML IV SCH (13:00)
[2023-06-25 16:00] VITALS: BP 115/61; PULSE 81; RESP 20; TEMP 96.4
[2023-06-25] MEDS ORDERED: KCL 20MEQ/100ML PREMIX 100 ML IV SCH (16:30)
[2023-06-25 20:00] VITALS: BP 121/78; PULSE 89; RESP 20; TEMP 96.8
[2023-06-26] VITALS: BP 116/66; PULSE 81; RESP 20; TEMP 96.4
[2023-06-26] MEDS: ACETAMINOPHEN 325MG TABLET PO PRN (00:03)
[2023-06-26 04:00] VITALS: BP 117/67; PULSE 87; RESP 20; TEMP 97.1
[2023-06-26] MEDS: METOCLOPRAMIDE HCL 10MG/2ML VIAL IV SCH ×2 (06:07→12:27)
[2023-06-26] MEDS: METRONIDAZOLE 500 MG PREMIX 100 ML IV SCH (06:07)
[2023-06-26] MEDS: DEXT 5%/0.9% NACL 1,000 ML IV SCH (07:16)
[2023-06-26 08:00] VITALS: BP 116/83; PULSE 60; RESP 20; TEMP 98.1
[2023-06-26] MEDS: FLUOXETINE HCL 10 MG CAPSULE PO SCH (09:04)
[2023-06-26] MEDS: ENOXAPARIN 40MG/0.4ML SYR SUBCUT SCH (09:04)
[2023-06-26] MEDS: PANTOPRAZOLE SODIUM 40 MG/VIAL IV SCH (09:04)
[2023-06-26] MEDS ORDERED: METR-167 MT (09:15)
[2023-06-26] MEDS ORDERED: LEVO750T68 MT (09:15)
[2023-06-26 10:19] LABS: BASOPHILS % 0.6 % (0.0-2.0); DIFFERENTIAL COMMENT 0; EOSINOPHILS % 2.1 % (0.0-5.0); HEMATOCRIT. 27.5 % (36.0-48.0); HEMOGLOBIN. 8.8 g/dL (12.0-16.0); LYMPHOCYTES % 26.7 % (20.0-50.0); MEAN CORPUSCULAR HEMOGLOBIN 25.6 pg (28.0-32.0); MEAN CORPUSCULAR HGB CONC 32.2 g/dL (31.0-37.0); MEAN CORPUSCULAR VOLUME 79.5 fL (81.0-99.0); MEAN PLATELET VOLUME 7.3 fl (7.4-10.4); MONOCYTES % 11.8 % (2.0-8.0); NEUTROPHILS % 58.8 % (40.0-76.0); PLATELET 343 x1000/uL (130-400); RED BLOOD CELL COUNT 3.46 mill/uL (4.2-5.4); RED CELL DISTRIBUTION WIDTH 16.4 % (11.6-14.6); WHITE BLOOD COUNT 3.3 x1000/uL (4.5-11.0)
[2023-06-26 11:08] LABS: CALCIUM 7.5 mg/dL (8.7-10.4); CARBON DIOXIDE 21 mEq/L (21-32); CHLORIDE 108 mEq/L (98-107); CREATININE 0.4 mg/dL (0.6-1.0); GLUCOSE 85 mg/dL (70-105); POTASSIUM 3.2 mEq/L (3.5-5.1); SODIUM 136 mEq/L (136-145)
[2023-06-26 11:22] LABS: UREA NITROGEN BLOOD < 5 mg/dL (9-23)
[2023-06-26] MEDS ORDERED: POTASSIUM CHLORIDE 20MEQ TABLET SR PO NR (11:42)
[2023-06-26 12:00] VITALS: BP 111/66; PULSE 89; RESP 19; TEMP 97.1
[2023-06-26 12:47] VITALS: BP 106/42; PULSE 97; TEMP 98.1; O2SAT 100
[2023-06-26 16:00] VITALS: BP 131/78; PULSE 75; RESP 19; TEMP 98.1
== END 2023-06-26 18:41 | disposition home or self-care (01) | DRG 227 ==
LOC: ER 22:33 → MICUSO 06-15 08:20 → EDBEDREQ 06-15 08:22 → CANRESERV 06-15 19:41 → ENRESERV 06-15 19:41 → 6EST 06-16 11:47 → UNDODISIN 06-22 15:05
PROVIDERS: ADMIT Internal Medicine; ATTEND Internal Medicine
PROC: 02HV33Z Insertion of Infusion Device into Superior Vena Cava, Percutaneous Approach (ICD-10-PCS; 2023-06-17)
PROC: B548ZZA Ultrasonography of Superior Vena Cava, Guidance (ICD-10-PCS; 2023-06-17)
PROC: 0DB78ZX Excision of Stomach, Pylorus, Via Natural or Artificial Opening Endoscopic, Diagnostic (ICD-10-PCS; principal; 2023-06-22)
PROC: 0WUF0JZ Supplement Abdominal Wall with Synthetic Substitute, Open Approach (ICD-10-PCS; 2023-06-22)
PROC: 0DBU0ZZ Excision of Omentum, Open Approach (ICD-10-PCS; 2023-06-22)
DX: K43.6 Other and unspecified ventral hernia with obstruction, without gangrene (principal); E44.0 Moderate protein-calorie malnutrition; K80.12 Calculus of gallbladder with acute and chronic cholecystitis without obstruction; K52.9 Noninfective gastroenteritis and colitis, unspecified; R16.0 Hepatomegaly, not elsewhere classified; K76.0 Fatty (change of) liver, not elsewhere classified; K29.80 Duodenitis without bleeding; K44.9 Diaphragmatic hernia without obstruction or gangrene; Z68.23 Body mass index [BMI] 23.0-23.9, adult; Z20.822 Contact with and (suspected) exposure to COVID-19; D50.9 Iron deficiency anemia, unspecified; E83.42 Hypomagnesemia; E86.0 Dehydration; E87.8 Other disorders of electrolyte and fluid balance, not elsewhere classified; G47.00 Insomnia, unspecified; J45.909 Unspecified asthma, uncomplicated; Z79.51 Long term (current) use of inhaled steroids; Z79.899 Other long term (current) drug therapy; Z99.3 Dependence on wheelchair; Z87.11 Personal history of peptic ulcer disease; Z98.891 History of uterine scar from previous surgery
CPT/HCPCS: 36415; 36573; 71045; 74176; 76705; 78227; 80048; 80053; 80061; 80076; 80305; 82533; 82550; 82747; 83036; 83735; 83880; 83930; 84100; 84134; 84439; 84443; 84484; 84703; 85014; 85025; 85027; 85379; 87426; 88302; 88305; 88312; 88313; 93005; 93970; 97110; 97116; 97162; 97166; 97530; 99285; A9537; C1725; C9113; J0330; J0690; J1100; J1170; J1650; J1885; J1940; J1956; J2250; J2270; J2405; J2704; J2710; J2765; J3010; J3475; J3480; J3490; J7030; J7040; J7042; J7060; C1781

== ENCOUNTER 2023-07-09 13:13 | Emergency (ER) | payer OTHER ==
[~2023-07-09] VITALS: Ht 157.5 cm; Wt 109.0 kg
[~2023-07-09 13:13] MED LIST changes: +LEVO750T68 MT; +METO-293 MT; +METR-167 MT; -ONDA4TAB50 MT; -POTA-354 MT; -VALG450T15 MT
[2023-07-09 13:17] VITALS: O2SAT 99
[2023-07-09] MEDS ORDERED: ONDANSETRON HCL 4MG/2ML INJ IV STA (13:34)
[2023-07-09] MEDS ORDERED: SODIUM CHLORIDE 0.9% 1,000 ML IV ONE (13:45)
[2023-07-09 13:58] LABS: BASOPHILS % 0.5 % (0.0-2.0); DIFFERENTIAL COMMENT 0; EOSINOPHILS % 0.4 % (0.0-5.0); HEMATOCRIT. 26.1 % (36.0-48.0); HEMOGLOBIN. 8.8 g/dL (12.0-16.0); MEAN CORPUSCULAR HGB CONC 33.8 g/dL (31.0-37.0); MEAN PLATELET VOLUME 7.4 fl (7.4-10.4); MONOCYTES % 7.3 % (2.0-8.0); NEUTROPHILS % 80.8 % (40.0-76.0); PLATELET 390 x1000/uL (130-400); RED BLOOD CELL COUNT 3.52 mill/uL (4.2-5.4); RED CELL DISTRIBUTION WIDTH 16.3 % (11.6-14.6); WHITE BLOOD COUNT 7.9 x1000/uL (4.5-11.0)
[2023-07-09 14:04] LABS: INR 1.4; PROTHROMBIN TIME 14.6 sec (9.6-11.0)
[2023-07-09 14:11] LABS: ALANINE AMINOTRANSFERASE 8 IU/L (10-49); ALBUMIN 2.2 g/dL (3.2-4.8); ASPARTATE AMINOTRANSFERASE 9 IU/L (<34); BILIRUBIN TOTAL 0.5 mg/dL (0.1-1.0); CALCIUM 7.5 mg/dL (8.7-10.4); CARBON DIOXIDE 16 mEq/L (21-32); CHLORIDE 101 mEq/L (98-107); CREATININE 0.5 mg/dL (0.6-1.0); GLUCOSE 69 mg/dL (70-105); PHOSPHORUS 2.1 mg/dL (2.5-4.9); PROTEIN TOTAL 7.3 g/dL (6.0-8.3); SODIUM 134 mEq/L (136-145); UREA NITROGEN BLOOD 5 mg/dL (9-23)
[2023-07-09 14:16] LABS: POTASSIUM 2.8 mEq/L (3.5-5.1)
[2023-07-09] MEDS ORDERED: MAGNESIUM 1 G PREMIX 100 ML IV ONE (14:30)
[2023-07-09] MEDS ORDERED: KCL 10MEQ/50ML PREMIX 100 ML IV SCH (14:30)
[2023-07-09] MEDS: KCL 10MEQ/50ML PREMIX 100 ML IV SCH ×2 (15:00→16:00)
[2023-07-09 15:34] VITALS: TEMP 98.1
[2023-07-09 16:58] VITALS: BP 172/81; PULSE 81; RESP 17
== END 2023-07-09 19:08 | disposition short-term general hospital (02) ==
LOC: ER 13:13 → CANBEDREQ 15:42 → ER 19:08
DX: R53.1 Weakness (principal); E87.6 Hypokalemia; E83.42 Hypomagnesemia; I82.491 Acute embolism and thrombosis of other specified deep vein of right lower extremity; J45.909 Unspecified asthma, uncomplicated; Z98.890 Other specified postprocedural states
CPT/HCPCS: 99285; 96365; 93971; 96361; 96375; 80053; 83690; 83735; 84100; 85025; 85610; 36415; J3475; J2405; J7030; J3480

== ENCOUNTER 2023-07-18 11:51 | Emergency (ER) | payer OTHER ==
[~2023-07-18] VITALS: Ht 160 cm; Wt 120.0 kg
[2023-07-18 11:58] VITALS: O2SAT 100
[2023-07-18 12:56] LABS: HEMATOCRIT. 24.4 % (36.0-48.0); HEMOGLOBIN. 8.1 g/dL (12.0-16.0); MEAN CORPUSCULAR HEMOGLOBIN 24.4 pg (28.0-32.0); MEAN CORPUSCULAR HGB CONC 33.4 g/dL (31.0-37.0); MEAN CORPUSCULAR VOLUME 73.3 fL (81.0-99.0); MEAN PLATELET VOLUME 6.4 fl (7.4-10.4); PLATELET 419 x1000/uL (130-400); RED BLOOD CELL COUNT 3.33 mill/uL (4.2-5.4); RED CELL DISTRIBUTION WIDTH 17.2 % (11.6-14.6); WHITE BLOOD COUNT 11.9 x1000/uL (4.5-11.0)
[2023-07-18 13:00] LABS: DIFFERENTIAL COMMENT 1
[2023-07-18 13:05] LABS: INR 1.3; PROTHROMBIN TIME 14.3 sec (9.6-11.0)
[2023-07-18 13:15] LABS: ALANINE AMINOTRANSFERASE < 7 IU/L (10-49); ALBUMIN 2.4 g/dL (3.2-4.8); ASPARTATE AMINOTRANSFERASE 11 IU/L (<34); BILIRUBIN TOTAL 0.3 mg/dL (0.1-1.0); CALCIUM 7.6 mg/dL (8.7-10.4); CARBON DIOXIDE 24 mEq/L (21-32); CHLORIDE 101 mEq/L (98-107); CREATININE 0.5 mg/dL (0.6-1.0); GLUCOSE 88 mg/dL (70-105); PHOSPHORUS 1.4 mg/dL (2.5-4.9); POTASSIUM 3.6 mEq/L (3.5-5.1); PROTEIN TOTAL 6.5 g/dL (6.0-8.3); SODIUM 133 mEq/L (136-145); UREA NITROGEN BLOOD 8 mg/dL (9-23)
[2023-07-18 13:21] LABS: TROPONIN I HIGH SENSITIVITY < 4 ng/L (3.0-34)
[2023-07-18 13:28] LABS: ANISOCYTOSIS 1+; HYPOCHROMASIA 1+; MICROCYTOSIS 1+; PLATELET ESTIMATE SLIGHTLY INCREASED
[2023-07-18 15:25] VITALS: BP 146/75; PULSE 102; RESP 18; TEMP 98.1
== END 2023-07-18 16:01 | disposition short-term general hospital (02) ==
LOC: ER 11:51 → CANBEDREQ 14:05 → ER 16:01
DX: R53.1 Weakness (principal); I10 Essential (primary) hypertension; J45.909 Unspecified asthma, uncomplicated
CPT/HCPCS: 80053; 83880; 83735; 84100; 85025; 85610; 84484; 36415; 71045; 70450; 99285; Z7610